=== PATIENT | male | born 1945 | race Caucasian/White ===

== ENCOUNTER 2019-07-22 16:37 | Emergency (ER) | payer MEDICARE ==
[2019-07-22 16:44] VITALS: RESP 18
--- NOTE | 2019-07-22 17:05 | ED ---
General Adult HPI - General Chief complaint: Urogenital Stated complaint: Not able to urinate Time Seen by Provider: 07/22/19 16:46 Source: patient Mode of arrival: ambulatory Limitations: no limitations - History of Present Illness Initial comments: Dictation was produced using [employer] dictation software. please excuse any grammatical, word or spelling errors. Chief Complaint: 74-year-old male past medical history of enlarged prostate presents with difficulty urinating. History of Present Illness: 74-year-old male. Today he had a computed tomography scan ordered by his primary care physician. He was told to drink a lot of fluids. Patient states he doesn't normally drink this amount of volume of fluids. Patient states that since the computed tomography scan this morning he's been having difficulty urinating. Patient reports that he has a history of enlarged prostate. He does have history of dribbling. He is likely because of the increase intake of fluids today it made his enlarged prostate more apparent. Patient still able to urinate however comes on very slowly. Patient denies ever seeing a urologist in the past. The ROS documented in this emergency department record has been reviewed and confirmed by me. Those systems with pertinent positive or negative responses have been documented in the HPI. All other systems are other negative and/or noncontributory. PHYSICAL EXAM: General Impression: Alert and oriented x3, not in acute distress HEENT: Normocephalic atraumatic, extra-ocular movements intact, pupils equal and reactive to light bilaterally, mucous membranes moist. Cardiovascular: Heart regular rate and rhythm, S1&S2 audible, no murmurs, rubs or gallops Chest: Lungs clear to auscultation bilaterally, no rhonchi, no wheeze, no rales Abdomen: Bowel sounds present, abdomen soft, non-tender, non-distended, no organomegaly Musculoskeletal: Pulses present and equal in all extremities, no peripheral edema Motor: no focal deficits noted Neurological: CN II-XII grossly intact, no focal motor or sensory deficits noted Skin: Intact with no visualized rashes Psych: Normal affect and mood ED course: 74-year-old male with clinical presentation consistent with urinary retention. Upon arrival are within acceptable limits.Post void residual was 300 mL of urine. Laboratory evaluation obtained showing no acute processes. Renal markers are intact. Urinalysis unremarkable. Toussaint catheter was placed. Patient given outpatient referral to urologist. Patient understandable agree able with disposition. ANSWERED. Return parameters discussed. - Related Data Allergies Allergy/AdvReac Type Severity Reaction Status Date / Time antihistamines AdvReac prostate Uncoded 07/22/19 16:44 swelling Review of Systems ROS Statement: Those systems with pertinent positive or pertinent negative responses have been documented in the HPI. ROS Other: All systems not noted in ROS Statement are negative. Past Medical History Past Medical History: Hypertension History of Any Multi-Drug Resistant Organisms: None Reported Past Surgical History: No Surgical Hx Reported Smoking Status: Never smoker Past Alcohol Use History: None Reported Past Drug Use History: None Reported General Exam Limitations: no limitations Course Vital Signs 07/22/19 16:39 Temperature 98.4 F Pulse Rate 78 Respiratory 18 Rate Blood Pressure 152/86 O2 Sat by Pulse 97 Oximetry Medical Decision Making - Lab Data Result diagrams: 07/22/19 17:52 Lab Results 07/22/19 07/22/19 Range/Units 16:59 17:52 Sodium 139 (137-145) mmol/L Potassium 3.6 (3.5-5.1) mmol/L Chloride 102 (98-107) mmol/L Carbon Dioxide 30 (22-30) mmol/L Anion Gap 7 mmol/L BUN 15 (9-20) mg/dL Creatinine 1.04 (0.66-1.25) mg/dL Est GFR (CKD-EPI)AfAm 82 (>60 ml/min/1.73 sqM) Est GFR (CKD-EPI)NonAf 71 (>60 ml/min/1.73 sqM) Glucose 115 H (74-99) mg/dL Calcium 9.8 (8.4-10.2) mg/dL Urine Color Yellow Urine Appearance Clear (Clear) Urine pH 7.5 (5.0-8.0) Ur Specific Dalton 1.018 (1.001-1.035) Urine Protein Negative (Negative) Urine Glucose (UA) Negative (Negative) Urine Ketones Negative (Negative) Urine Blood Negative (Negative) Urine Nitrite Negative (Negative) Urine Bilirubin Negative (Negative) Urine Urobilinogen <2.0 (<2.0) mg/dL Ur Leukocyte Esterase Negative (Negative) Disposition Clinical Impression: Urinary retention Disposition: HOME SELF-CARE Condition: Good Instructions (If sedation given, give patient instructions): Urinary Retention in Men (ED), Enlarged Prostate (BPH) (ED) Is patient prescribed a controlled substance at d/c from ED?: No Referrals: Roger Montaño MD [STAFF PHYSICIAN] - 1-2 days Time of Disposition: 18:33
[2019-07-22 17:18] LABS: Appearance,Urine Clear (Clear); Bilirubin,Urine Negative (Negative); Blood,Urine Negative (Negative); Color,Urine Yellow; Glucose,Urine (UA) Negative (Negative); Ketones,Urine Negative (Negative); Leukocyte Esterase,Urine Negative (Negative); Nitrite,Urine Negative (Negative); PH, Urine 7.5 (5.0-8.0); Protein,Urine Negative (Negative); Specific Gravity,Urine 1.018 (1.001-1.035); Urobilinogen,Urine <2.0 mg/dL (<2.0)
[2019-07-22 18:24] LABS: Calcium 9.8 mg/dL (8.4-10.2); Potassium 3.6 mmol/L (3.5-5.1)
[2019-07-22 19:11] VITALS: BP 155/89; PULSE 80; TEMP 97.9
== END 2019-07-22 19:09 | disposition home or self-care (01) ==
LOC: EC 16:37
DX: R33.9 Retention of urine, unspecified (principal); Z88.8 Allergy status to other drugs, medicaments and biological substances; Z87.438 Personal history of other diseases of male genital organs
CPT/HCPCS: 36415; 51702; 51798; 80048; 81003; 99284

== ENCOUNTER → 2019-07-22 | Outpatient (CLI) | payer MEDICARE ==
[2019-07-22 10:14] LABS: African American GFR (CKD) >90 (>60 ml/min/1.73 sqM); Blood Urea Nitrogen 15 mg/dL (9-20); Non-African American GFR(CKD) 84 (>60 ml/min/1.73 sqM)
--- NOTE | 2019-07-22 11:51 | CT ---
EXAMINATION TYPE: CT abdomen pelvis w con DATE OF EXAM: 07/22/2019 COMPARISON: None HISTORY: Right sided abdominal pain, nausea CT DLP: 1394.5 mGycm CONTRAST: CT scan of the abdomen and pelvis is performed with Oral Contrast and with IV Contrast, patient injec katiana with 100 mL of Isovue 300. FINDINGS: LUNG BASES-: No visible nodule. No infiltrate. LIVER/GB: No calcified gallstones. No space occupying hepatic lesion. Biliary tree is of normal ca liber. PANCREAS: No inflammation. No distinct mass. SPLEEN: No splenic enlargement. No lesion seen. ADRENALS: No nodule. No thickening. KIDNEYS/BLADDER: No hydronephrosis. No nephrolithiasis. Bilateral simple renal cysts noted. Urinary bladder grossly unremarkable. BOWEL: Normal appendix. Normal bowel caliber. No inflammation. GENITAL ORGANS: No gross abnormality. LYMPH NODES: No greater than 1cm abdominal or pelvic lymph nodes are appreciated. AORTA: No significant abnormality. OSSEOUS STRUCTURES: No significant abnormality is seen. OTHER: No significant additional abnormality is seen. IMPRESSION: 1. No significant abnormality identified to account for the patient's symptoms.
== END | disposition home or self-care (01) ==
LOC: RADCTMAIN 09:37
PROVIDERS: ATTEND Family Medicine
DX: R11.0 Nausea (principal); R10.9 Unspecified abdominal pain; Z88.8 Allergy status to other drugs, medicaments and biological substances
CPT/HCPCS: 36415; 74177; 82565; 84520

== ENCOUNTER → 2023-07-29 | Outpatient (CLI) | payer MEDICARE ==
[2023-07-29 11:11] LABS: INR 1.1 (<1.2); Partial Thromboplastin Time 25.9 sec (22.0-30.0); Prothrombin Time 11.5 sec (10.0-12.5)
[2023-07-29 15:32] LABS: ALT 43 U/L (10-49); AST 27 U/L (14-35); Albumin 4.1 g/dL (3.8-4.9); Albumin/Globulin Ratio 1.71 Ratio (1.60-3.17); Alkaline Phosphatase 90 U/L (41-126); BUN/Creat Ratio 21.89 Ratio (12.00-20.00); Blood Urea Nitrogen 19.7 mg/dL (9.0-27.0); Calcium 10.1 mg/dL (8.7-10.3); Carbon Dioxide 30.4 mmol/L (21.6-31.8); Chloride 101 mmol/L (96-109); Globulin 2.4 g/dL (1.6-3.3); Glucose 108 mg/dL (70-110); Potassium 4.8 mmol/L (3.5-5.5); Sodium 141 mmol/L (135-145); Total Bilirubin 0.8 mg/dL (0.3-1.2); Total Protein 6.5 g/dL (6.2-8.2)
[2023-07-29 15:39] LABS: HCT 46.4 % (39.6-50.0); HGB 15.8 g/dL (13.0-17.0); MCH 30.8 pg (27.0-32.0); MCHC 34.1 g/dL (32.0-37.0); MCV 90.4 FL (80.0-97.0); Mean Platelet Volume 10.3 FL (9.5-12.2); NRBC Per 100 WBC 0 X 10*3/uL (0.00-0.01); Platelet Count 258 X 10*3/uL (140-440); RBC 5.13 X 10*6/uL (4.40-5.60); RDW 12.9 % (11.5-14.5); WBC 6.01 X 10*3/uL (4.50-10.00)
[2023-07-29 16:46] LABS: Appearance,Urine Clear (Clear); Bilirubin,Urine Negative (Negative); Blood,Urine Negative (Negative); Color,Urine Dark Yellow (Yellow); Ketones,Urine Negative (Negative); Nitrite,Urine Negative (Negative); Urobilinogen,Urine 0.2 E.U./DL
== END | disposition home or self-care (01) ==
LOC: LABPAT 09:18
PROVIDERS: ATTEND Orthopaedic Surgery
DX: Z01.812 Encounter for preprocedural laboratory examination (principal); M16.12 Unilateral primary osteoarthritis, left hip
CPT/HCPCS: 36415; 80053; 81003; 85027; 85610; 85730; 86850; 86900; 86901; 87070

== ENCOUNTER 2023-08-07 11:15 | Day surgery (SDC) | payer MEDICARE ==
[~2023-08-07 11:15] MED LIST: ACETAMINOPHEN TAB 500 MG TAB PO PRN; DEXAMETHASONE SOD PHOSPHATE 10 MG/ML 1 ML VIAL IV PRN; DOCUSATE 100 MG CAP PO PRN; FAMOTIDINE 20 MG/2 ML VIAL IVP PRN; KETOROLAC 15 MG/ML 1 ML VIAL IVP PRN; ONDANSETRON 4 MG/2 ML VIAL IVP PRN; ROPIVACAINE/EPI/CLONIDINE/KET 50 ML SYRINGE MISCELLANE PRN; TRANEXAMIC 1,000 MG/100ML-NACL 1,000 MG in SALINE 1 100ML.BAG IV PRN; TRANEXAMIC 1,000 MG/100ML-NACL 1,000 MG in SALINE 1 100ML.BAG IVPB PRN; oxyCODONE ER 10 MG TAB.ER.12H PO PRN
[2023-08-07] MEDS ORDERED: LIDOCAINE 1% (10MG/ML) FOR IV START INTRADERMA PRN (11:39)
[2023-08-07] MEDS ORDERED: HYDROmorphone 0.5 MG/0.5 ML SYRINGE IVP PRN ×2 (11:39→16:20)
[2023-08-07] MEDS: LACTATED RINGERS 1,000 ML IV SCH ×2 (11:59→17:45)
[2023-08-07] MEDS ORDERED: ePHEDrine 50 MG/ML 1 ML VIAL ONE (13:55)
[2023-08-07] MEDS ORDERED: TRANEXAMIC 1,000 MG/100ML-NACL PREMIX BAG ONE (13:55)
[2023-08-07] MEDS ORDERED: GLYCOPYRROLATE 0.2 MG/ML 2 ML VIAL ONE (13:55)
[2023-08-07] MEDS ORDERED: ROPIVACAINE 5 MG/ML 30 ML VIAL ONE (13:55)
[2023-08-07] MEDS ORDERED: KETAMINE HCL IN 0.9 % NACL 50 MG/5 ML SYRINGE ONE (13:55)
[2023-08-07] MEDS ORDERED: SODIUM CHLORIDE 0.9% (PF) 10 ML VIAL ONE (13:55)
[2023-08-07] MEDS ORDERED: LIDOCAINE 1% INJ 10MG/ML (20 ML MDV) ONE (13:55)
[2023-08-07] MEDS ORDERED: ROCURONIUM 10 MG/ML (5 ML VIAL) IV ONE (13:55)
[2023-08-07] MEDS ORDERED: DEXAMETHASONE SOD PHOSPHATE 4 MG/ML 1 ML VIAL ONE (13:55)
[2023-08-07] MEDS ORDERED: SUCCINYLCHOLINE CHLORIDE 200 MG/10 ML VIAL IV ONE (13:55)
[2023-08-07] MEDS ORDERED: NEOSTIGMINE 1 MG/ML 10 ML VIAL ONE (13:55)
[2023-08-07] MEDS ORDERED: fentaNYL (PF) 50 MCG/ML 2 ML AMP ONE (13:55)
[2023-08-07] MEDS ORDERED: PROPOFOL 10 MG/ML 20 ML VIAL IV ONE (13:55)
--- NOTE | 2023-08-07 14:52 | P.ANPRN ---
Procedure Note - Anesthesia - Nerve Block Performed Left [place] Single Time Out Performed: Yes Date of Procedure: 08/07/23 Procedure Start Time: 13:00 Procedure Stop Time: 13:10 Indication: Acute Post-Operative Pain, Dx/Pain Location, Requested by Surgeon Sedation Type: Sedate with meaningful contact maintained Preparation: Sterile Prep Position: Supine Catheter: None Needle Types: Pajunk Needle Gauge: 21 Ultrasound used to visualize needle placement: Yes Ultrasound used to observe medication spread: Yes Injectate: Other (see comment) (0.25% Ropivacaine with 4mg dexamethasone 25ml) Blood Aspirated: No Pain Paresthesia on Injection Noted: No Resistance on Injection: Normal Image Stored and Saved: Yes Events: Uneventful and Well Tolerated
[2023-08-07] MEDS ORDERED: LACTATED RINGERS 1,000 ML IV ONE (15:41)
[2023-08-07] MEDS ORDERED: MAGNESIUM HYDROXIDE 2,400 MG/30 ML CUP PO PRN (16:20)
[2023-08-07] MEDS ORDERED: diazePAM 5 MG TAB PO PRN (16:20)
[2023-08-07] MEDS ORDERED: hydrOXYzine pamoate 25 MG CAP PO PRN (16:20)
[2023-08-07] MEDS ORDERED: NALOXONE 0.4 MG/ML 1 ML VIAL IV PRN (16:20)
--- NOTE | 2023-08-07 16:20 | P.OP ---
Date of Procedure: 08/07/23 Preoperative Diagnosis: 1. Severe left hip osteoarthritis Postoperative Diagnosis: Same Procedure(s) Performed: Left direct anterior total hip arthroplasty Implants: 1. Regina Trident II Acetabular Cup, Size #54 2. Engelhard Insignia Size # 8 Femoral Stem, High Offset 3. Biolox delta femoral head, 36 mm, - 5 mm neck Anesthesia: GETA, regional Surgeon: Low Galloway Estimated Blood Loss (ml): 200 IV fluids (ml): 800 Pathology: none sent Condition: stable Disposition: PACU Indications for Procedure: I had a long discussion with the patient in the office on the potential risks and complications of an elective total hip replacement through a direct anterior approach. Risks discussed include, but are certainly not limited to, risks from anesthesia, superficial infection requiring local wound care or antibiotics, de ep caesar-prosthetic joint infection and the treatment required to eradicate infection, intraoperative fracture, postoperative periprosthetic fracture, damage to local blood vessels or nerves particularly the lateral femoral cutaneous nerve, delayed wound healing requiring local wound care or possibly surgical debridement, hip dislocation, leg length discrepancy, soft tissue irritation around the total hip implant such as iliopsoas tendinitis or trochanteric bursitis, wear and osteolysis from the implants, squeaking or audible noises, groin pain, thigh pain, heterotopic ossification, stiffness, aseptic loosening of the implants, dissatisfaction with surgical outcome, need for revision surgery, DVT, PE, swelling of the operative extremity, acute coronary event, stroke, failure to thrive, and possibly loss of life or limb. The patient understands that while these are the most common complications after an elective hip replacement there are certainly other less common complications possible. They were given ample time to ask questions regarding the potential complications of a hip replacement. Following our discussion the patient provided their verbal and written consent to go forward with an elective total hip replacement. Operative Findings: Severe left hip osteoarthritis Description of Procedure: The patient was identified in the preoperative holding area and the correct hip was marked with my initials. I reviewed the procedure and consent with the patient. All of their questions were answered. The patient was then brought back into the operating room by anesthesia. While on the [facility] anesthesia was administered by the anesthesia team. Preoperative antibiotics and tranexamic acid were also given. After the patient was under anesthesia I examined their ankles to determine their preoperative leg length discrepancy. The skin over the anterior aspect of the hip was shaved to remove hair over the site of planne d incision. Both feet and ankles were padded with webril and boots for the [place] were applied. The patient was then carefully transferred onto the [place] table. A perineal post was immediately placed. The arms were placed on arm holders and were well-padded. Both boots were secured to the spars on the [place] table. The patient was positioned so that the pelvis was centered over the post. Nonster ile drapes were applied. A timeout was performed identifying the correct patient, operative extremity, and procedure. At this point fluoroscopy was brought in to take preoperative images of the pelvis and operative hip. Using the standing AP pelvis from the office as a template, a comparable image was obtained with fluoroscopy. A metallic bar was used to create a bi-ischial line for use as a reference to leg length adjustments during the procedure. Global offset was also measured on both the operative and nonoperative leg. Fluoroscopy was then brought out and a pre-scrub using a chlorhexidine scrub brush was performed. The operative limb was then prepped and draped in the standard sterile fashion. An anterior longitudinal incision was made lateral and distal to the ASIS. The skin and subcutaneous tissues were incised sharply. The underlying tensor fascia was identified and incised in its midportion. The fascia was dissected free from the underlying muscle and the muscle belly was retracted. A blunt tipped cobra retractor was placed over the superior neck under the muscle fibers of the gluteus minimus. The deep enveloping fascia of the tensor was incised. The anterior leash of vessels were then identified and cauterized. The fascia between the rectus and the capsule was then incised and the pre-capsular fat was excised. A second Cobra was placed inferior to the neck. The interval between the rectus and iliocapsularis and the hip capsule was developed and a retractor was placed carefully over the anterior rim of the acetabulum. A T-shaped anterior capsulotomy was performed. The superior capsular leaflet was left in place in the inferior capsular flap was excised. The Cobra retractors were placed intracapsularly. We then made a femoral neck osteotomy according to preoperative and intraoperative templating and confirmed the level of the osteotomy using fluoroscopic imaging. The femoral head was removed, passed off to the back table, and sized. The superior capsular flap was excised. Retractors were placed circumferentially exposing the acetabulum. We then circumferentially debrided the acetabulum free of labrum and osteophytes. The pulvinar was removed to fully visualize the cotyloid fossa. We then sequentially reamed to achieve peripheral fit and excellent bleeding subchondral bone. The socket was thoroughly irrigated. The acetabular component was impacted into the appropriate position using fluoroscopy to guide version, inclination, and depth of insertion taking care to have a comparable image of the AP pelvis to the standing image taken in the office. An excellent press-fit was achieved and final position was confirmed using fluoroscopy. The press fit was augmented with bony cancellus dome screws. The liner was then impacted into the socket. Attention was then turned to the femur. The remnant dorsal lateral capsule was excised. The short external rotators were visible and protected. A bone hook was used to confirm appropriate translation of the trochanter away from the acetabulum. The leg was then extended and adducted and the bone hook was used to elevate the femur for broaching. A box osteotome and blunt tipped canal sound was then utilized to gain access to the femoral canal. We then sequentially broached the femur in appropriate anteversion until excellent torsional stability was achieved. The neck cut was brought flush to the trial broach with a calcar planar. A trial neck and head were then placed onto the broach and the hip was atraumatically reduced under direct visualization. External rotation to 90 was performed to assess stability. Fluoroscopy was brought in. An AP and lateral fluoroscopic image of the proximal femur was obtained to assess position and fill of the trial broach. An AP of the pelvis was then obtained and matched to the preoperative image taken. A bi-ischial bar was then placed and measurements were taken to assess changes in length and offset. The hip was then carefully dislocated, the proximal femur was exposed, and the trial implants were removed. The wound and proximal femur was thoroughly irrigated using sterile saline and pulsatile lavage. The final femoral implant was dispensed and gently tapped into place generating an excellent press-fit. The trunnion was cleansed and the final head was tapped into place to engage the Schuster taper. The acetabulum was irrigated and visualized to be free of debris. The hip was carefully reduced. Stability was checked clinically with external rotation to 90 and there was no evidence of instability. Final fluoroscopic images were taken. The wound was then thoroughly irrigated and soaked with a dilute Betadine rinse for 3 minutes. 3 L of sterile saline was irrigated through the wound using pulsatile lavage. Local anesthetic cocktail was injected into the soft tissues around the surgical field. The wound was then closed in layers. A sterile dressing was placed over the surgical incision. The drapes were taken down and the patient was carefully transferred off of the [place] table. Following removal of the boots the leg lengths felt acceptable. The patient was then taken to recovery room having tolerated the procedure well. PLAN: The patient can weight-bear as tolerated on the operative extremity. DVT prophylaxis with aspirin 81 mg twice a day based on preoperative risk stratif ication. Physical therapy for gait training.
--- NOTE | 2023-08-07 16:26 | FL ---
EXAMINATION TYPE: FL guidance operating room, XR Hip Limited LT Intraoperative/procedural fluoroscopi c services were provided. Total fluoroscopy time is 31 seconds with a total of 7 submitted images to PACS. Please see the operative/procedural note for further details. DAP: 1.2368 Gycm2
[2023-08-07] MEDS: TAMSULOSIN 0.4 MG CAP.ER.24H PO SCH (19:58)
[2023-08-07] MEDS: ASPIRIN 81 MG PO SCH (19:58)
[2023-08-07] MEDS: SENNOSIDES-DOCUSATE SODIUM 1 EACH TAB PO SCH (19:58)
[2023-08-07] MEDS: HYDROcodone/APAP 5-325MG 1 EACH TAB PO PRN (20:01)
[2023-08-08] MEDS: LACTATED RINGERS 1,000 ML IV SCH ×4 (03:49→22:59)
[2023-08-08 08:05] LABS: Basophils % (A) 0 %; Eosinophils % (A) 0 %; HGB 13.7 gm/dL (13.0-17.5); Lymphocytes # (A) 0.5 k/uL (1.0-4.8); Lymphocytes % (A) 4 %; MCH 31.5 pg (25.0-35.0); MCV 89.8 fL (80.0-100.0); Mean Platelet Volume 7.6; Monocytes # (A) 0.7 k/uL (0-1.0); Monocytes % (A) 5 %; Neutrophils # (A) 12.6 k/uL (1.3-7.7); Neutrophils % (A) 91 %; Platelet Count 167 k/uL (150-450); RBC 4.34 m/uL (4.30-5.90); RDW 13.1 % (11.5-15.5); WBC 13.9 k/uL (3.8-10.6)
--- NOTE | 2023-08-08 08:34 | P.DS ---
Providers Date of admission: 08/07/2023 Attending physician: Low Galloway Consults: 08/07/23 16:20 Consult Physician Routine Consulting Provider: Valentín Berumen Consult Reason/Comments: post op medical management Do you want consulting provider notified?: Yes Primary care physician: Valentín Berumen Hospital Course: Patient is very pleasant 78-year-old male who was admitted under my care yesterday and underwent uncomplicated left total hip replacement. Following surgery he was transferred to orthopedics for. He received 2 doses of postoperative antibiotics. He was started on aspirin for DVT prophylaxis. Internal medicine consulted for perioperative medical management. He worked with physical therapy. He was seen on postoperative day #1 and was doing well. He was ultimately cleared for discharge home. Plan - Discharge Summary Discharge Rx Participant: No New Discharge Prescriptions: New HYDROcodone/APAP 5-325MG [[place] 5-325] 1 - 2 tab PO Q6HR PRN #32 tab PRN Reason: Pain Omeprazole 40 mg PO DAILY #30 cap Aspirin 81 mg PO BID #60 tab Docusate [Colace] 100 mg PO BID #28 capsule Diclofenac Sodium [Voltaren] 75 mg PO BID #60 tab No Action Tamsulosin [Flomax] 1 capsule PO DAILY Atenolol/Chlorthalidone [Atenolol/Chlorthalidone 50-25] 1 each PO DAILY Discharge Medication List Aspirin 81 mg PO BID #60 tab 08/07/23 [Rx] Atenolol/Chlorthalidone [Atenolol/Chlorthalidone 50-25] 1 each PO DAILY 08/07/23 [History] Diclofenac Sodium [Voltaren] 75 mg PO BID #60 tab 08/07/23 [Rx] Docusate [Colace] 100 mg PO BID #28 capsule 08/07/23 [Rx] HYDROcodone/APAP 5-325MG [[place] 5-325] 1 - 2 tab PO Q6HR PRN #32 tab 08/07/23 [Rx] Omeprazole 40 mg PO DAILY #30 cap 08/07/23 [Rx] Tamsulosin [Flomax] 1 capsule PO DAILY 08/07/23 [History] Follow up Appointment(s)/Referral(s): [facility] [[facility]] - 1-2 Days ([facility] will call you to schedule your in home physical therapy visits. ) Low Galloway MD [Medical Doctor] - 2 Weeks Activity/Diet/Wound Care/Special Instructions: 1. Weight-bear as tolerated on your operative extremity unless instructed otherwise. Use a walker or other assistive device to ambulate. 2. Leave surgical dressing in place. If your dressing becomes saturated with blood, there is drainage, or the dressing becomes loose please contact the office. 3. It is okay to shower with your surgical dressing, but do not submerge in water (no hot tubs, bath's, swimming etc.) 4. Make sure to take her blood clot prevention medication as prescribed (aspirin, Eliquis, Xarelto, and Plavix are commonly prescribed medications for blood clot prevention) 5. While taking [place] or Percocet for pain make sure you're taking a stool softener (Colace) and drink lots of water. 6. Keep all follow-up appointments as scheduled. You will usually be seen in 1-2 weeks following surgery. 7. Please contact the office with any questions or concerns [phone] Discharge Disposition: HOME SELF-CARE
[2023-08-08] MEDS: CHLORTHALIDONE 25 MG TAB PO SCH (08:44)
[2023-08-08] MEDS: atenoloL 50 MG TAB PO SCH (08:44)
[2023-08-08] MEDS: TAMSULOSIN 0.4 MG CAP.ER.24H PO SCH (08:44)
[2023-08-08] MEDS: ASPIRIN 81 MG PO SCH ×2 (08:44→20:58)
[2023-08-08] MEDS ORDERED: TAMSULOSIN 0.4 MG CAP.ER.24H PO STA (12:09)
[2023-08-08] MEDS: HYDROcodone/APAP 5-325MG 1 EACH TAB PO PRN (13:01)
[2023-08-08] MEDS: SENNOSIDES-DOCUSATE SODIUM 1 EACH TAB PO SCH (20:58)
[2023-08-08] MEDS ORDERED: TEMAZEPAM 15 MG CAP PO PRN (22:00)
[2023-08-09 02:08] VITALS: TEMP 98.1
[2023-08-09] MEDS: LACTATED RINGERS 1,000 ML IV SCH ×2 (08:21→13:21)
[2023-08-09] MEDS: TAMSULOSIN 0.4 MG CAP.ER.24H PO SCH (08:22)
--- NOTE | 2023-08-09 08:22 | P.PN ---
Subjective Progress Note Date: 08/09/23 Patient is doing well in regards to his left hip. His only complaint is numbness of the lateral aspect of the thigh which I discussed is normal following an anterior hip replacement. He was initially cleared for discharge yesterday but due to urinary retention had a Toussaint catheter placed and was kept an additional night. Patient states that he has had urinary retention following surgery in the past and had to be discharged with Toussaint. Objective - Vital Signs Vital signs: Vital Signs Temp 98.1 F 08/09/23 01:05 Pulse 74 08/09/23 01:05 Resp 18 08/09/23 01:05 BP 124/72 08/09/23 01:05 Pulse Ox 96 08/09/23 01:05 FiO2 Intake & Output 08/08/23 08/09/23 08/09/23 18:59 06:59 18:59 Output Total 1300 2600 Balance -1300 -2600 Output: Urine 1300 2600 Straight 1300 800 Other: # Voids 1 - Exam Patient is resting comfortably in bed. On inspection of the left leg there is a clean intact dressing over the left hip. His thigh is soft. Femoral nerve function is intact. He is able to actively plantar flex and dorsiflex his ankle and his toes. - Labs CBC & Chem 7: 08/08/23 07:45 Assessment and Plan Assessment: Postoperative day #2 status post left direct anterior total hip arthroplasty Postoperative urinary retention Plan: Continue treatment as previously documented for his left hip. In regards to his postoperative urinary retention I'll place a consult to urology as the patient has seen Dr. Ya in the past. Once he is cleared by internal medicine and urology and okay with him discharging home.
[2023-08-09] MEDS: CHLORTHALIDONE 25 MG TAB PO SCH (08:23)
[2023-08-09] MEDS: atenoloL 50 MG TAB PO SCH (08:23)
[2023-08-09] MEDS: ASPIRIN 81 MG PO SCH (08:23)
[2023-08-09] MEDS: HYDROcodone/APAP 10-325MG 1 EACH TAB PO PRN ×2 (08:25→14:13)
[2023-08-09 08:35] VITALS: BP 126/74; PULSE 77; RESP 20
--- NOTE | 2023-08-09 12:32 | P.GSCN ---
History of Present Illness Consult date: 08/09/23 Reason for Consult: Urinary retention History of present illness: This is a 78-year-old male S/P hip replacement on 08/07. Urology is consulted for urinary retention. Patient does have history of BPH is on Flomax at baseline. Does have previous history of postoperative urinary retention. Denies any dysuria, gross hematuria. He was unable to void post surgery and subsequently a Toussaint catheter was placed. At baseline he does have a fair stream without straining. He does have history significant prostate enlargement Review of Systems - Constitutional Denies fever, Denies weight loss - EENT Ears, nose, mouth and throat: Denies dysphagia - Cardiovascular Denies chest pain, Denies shortness of breath - Respiratory Denies cough, Denies 7 - Gastrointestinal Denies nausea, Denies vomiting - Genitourinary Denies dysuria, Denies flank pain, Denies hematuria Past Medical History Past Medical History: Hypertension, Prostate Disorder, Vascular Disorder Additional Past Medical History / Comment(s): varicose veins, enlarged prostate, History of Any Multi-Drug Resistant Organisms: None Reported Past Surgical History: Orthopedic Surgery, Tonsillectomy Additional Past Surgical History / Comment(s): cataracts tresa, colonoscopy, little finger procedure Past Anesthesia/Blood Transfusion Reactions: No Reported Reaction Smoking Status: Never smoker - Past Family History Mother Family Medical History: Cancer Additional Family Medical History / Comment(s): colon, Medications and Allergies Home Medications Medication Instructions Recorded Confirmed Type Aspirin 81 mg PO BID #60 tab 08/07/23 Rx Atenolol/Chlorthalidone 1 each PO DAILY 08/07/23 08/07/23 History [Atenolol/Chlorthalidone 50-25] Diclofenac Sodium [Voltaren] 75 mg PO BID #60 tab 08/07/23 Rx Docusate [Colace] 100 mg PO BID #28 capsule 08/07/23 Rx HYDROcodone/APAP 5-325MG [[place] 1 - 2 tab PO Q6HR PRN #32 tab 08/07/23 Rx 5-325] Omeprazole 40 mg PO DAILY #30 cap 08/07/23 Rx Tamsulosin [Flomax] 1 capsule PO DAILY 08/07/23 08/07/23 History Doxycycline Monohydrate 100 mg PO BID #28 cap 08/09/23 Rx Allergies Allergy/AdvReac Type Severity Reaction Status Date / Time gluten AdvReac Unknown Verified 08/07/23 11:49 Iodinated Contrast Media AdvReac Unknown Verified 08/07/23 11:49 lactose AdvReac Unknown Verified 08/07/23 11:49 monosodium glutamate [MSG] AdvReac Unknown Verified 08/07/23 11:49 wheat AdvReac Unknown Verified 08/07/23 11:49 grains Allergy Unknown Uncoded 08/04/23 09:20 antihistamines AdvReac prostate Uncoded 08/04/23 09:20 swelling Surgical - Exam Vital Signs Temp Pulse Resp BP Pulse Ox 97.4 F L 50 L 17 174/79 96 08/07/23 11:45 08/07/23 11:45 08/07/23 11:45 08/07/23 11:45 08/07/23 11:45 - General no distress, no pain - Eyes normal ocular movement, no pale - ENT normal nares, normal mucosa - Respiratory normal expansion, normal respiratory effort - Abdomen Abdomen: soft - Psychiatric oriented to time, oriented to person, oriented to place Results - Labs 08/08/23 07:45 Assessment and Plan Assessment: 78-year-old male with history of BPH, significant prostate enlargement > 100 g, developed postoperative urinary retention. He's the patient is known to me. Previous history of postoperative urinary retention. -continue Flomax -Can be discharged with Toussaint catheter, can follow-up as an outpatient next week for trial void. He was advised to remove the catheter 6 hours prior to the follow-up
--- NOTE | 2023-08-11 05:20 | CONS ---
CONSULTATION CHIEF COMPLAINT: Arthritis of left hip. HISTORY OF PRESENT ILLNESS: This is first known admission for this gentleman, who has come in for an elective left ADRYAN. He has been in good health as a whole. He does have BPH. REVIEW OF SYSTEMS: He has had no recent headaches, neurologic problems, difficulty with vision or hearing, shortness of breath, cough, chest pain, palpitations, abdominal pain, nausea, vomiting, melena, hematochezia, jaundice, hepatitis, hematuria, renal failure, frequency, urgency, nocturia, incontinence, etc. He used to smoke, but does not any longer. PHYSICAL EXAMINATION: VITAL SIGNS: Normal. He is afebrile. GENERAL: He appeared to be in no acute distress. SKIN: Color is normal. Skin is warm and dry. LYMPHATICS: Lymph nodes are not enlarged. HEAD, EARS, EYES, NOSE, MOUTH AND THROAT: Normal. CHEST: Clear. CARDIAC: Normal. ABDOMEN: Soft. EXTREMITIES: Normal. NEUROLOGICAL: He is intact. IMPRESSION: Osteoarthritis of the left hip. RECOMMENDATIONS: None. MMODL / IJN: [id number] /
--- NOTE | 2023-08-11 05:29 | PN ---
PROGRESS NOTE DATE OF SERVICE: 08/09/2023 CHIEF COMPLAINT: Status post left TKA. HISTORY OF PRESENT ILLNESS: This gentleman is having a little difficulty voiding. He has had to be straight cathed. His Flomax has been increased to 2 a day. PHYSICAL EXAMINATION: CHEST: Clear. CARDIAC: Normal. ABDOMEN: Soft, nontender. IMPRESSION: 1. Status post left TKA. 2. Urinary retention. PLAN: He may be able to avoid catheterization, but it is not clear at this point. MMODL / IJN: [id number] /
--- NOTE | 2023-08-11 05:50 | PN ---
PROGRESS NOTE DATE OF SERVICE: 08/08/2023 CHIEF COMPLAINT: Left ADRYAN. HISTORY OF PRESENT ILLNESS: This gentleman is doing well and there has been no issue. He has had a problem voiding, however. PHYSICAL EXAMINATION: CHEST: Clear. CARDIAC: Normal. ABDOMEN: Soft, nontender. He is not having any pain to speak of. IMPRESSION: 1. Status post left ADRYAN. 2. BPH. PLAN: Await to see if the patient will be able to void. His Flomax will be increased. MMODL / IJN: [id number] /
== END 2023-08-09 14:47 | disposition home or self-care (01) ==
LOC: OR 11:15 → 4SSUR 16:05 → OR 08-09 14:47
PROVIDERS: ATTEND Orthopaedic Surgery
DX: M16.12 Unilateral primary osteoarthritis, left hip (principal); G89.18 Other acute postprocedural pain; I10 Essential (primary) hypertension; N40.1 Benign prostatic hyperplasia with lower urinary tract symptoms; Z90.89 Acquired absence of other organs; Z79.82 Long term (current) use of aspirin; Z79.899 Other long term (current) drug therapy; Z91.041 Radiographic dye allergy status
CPT/HCPCS: 97110; 97161; 85025; 73501; 27130; 64450; J1100; J0690 ×2; J2405; J3490; J1885; 64447